=== PATIENT | female | born 1995 | race Caucasian/White ===

== ENCOUNTER 2016-06-23 20:53 | Emergency (ER) | payer OTHER, MEDICAID ==
[~2016-06-23] VITALS: Ht 154.9 cm; Wt 65.0 kg
[2016-06-23 22:06] VITALS: BP 134/89
== END 2016-06-24 01:17 | disposition home or self-care (01) ==
LOC: ER 22:51
DX: M54.9 Dorsalgia, unspecified (principal); M54.2 Cervicalgia; V43.62XA Car passenger injured in collision with other type car in traffic accident, initial encounter; Y93.89 Activity, other specified; Y99.9 Unspecified external cause status; Y92.411 Interstate highway as the place of occurrence of the external cause
CPT/HCPCS: 99283